=== PATIENT | female | born 1985 | race Caucasian/White ===

== ENCOUNTER 2018-08-15 09:58 | Inpatient (IN) | payer OTHER ==
[~2018-08-15] VITALS: Ht 162.6 cm; Wt 80.9 kg
[~2018-08-15 09:58] MED LIST: HYDR-3422 PO; PERMETHRIN 5%
[2018-08-15] MEDS ORDERED: VITAD1000 PO (10:11)
[2018-08-15] MEDS ORDERED: METO-558 PO (10:11)
[2018-08-15] MEDS ORDERED: LOSA1TAB37 PO (10:11)
[2018-08-15] MEDS ORDERED: KETOROLAC TROMETHAMINE 30 MG/ML VIAL IVP ONE (10:30)
[2018-08-15] MEDS ORDERED: SODIUM CHLORIDE 0.9% 1,000 ML IV ONE ×3 (10:30→13:45)
[2018-08-15 10:47] LABS: BASOPHILS % (AUTO) 0.3 % (0.0-2.0); EOSINOPHILS % (AUTO) 1.3 % (1.0-6.0); HEMATOCRIT 38.1 % (36-46); HEMOGLOBIN 12.9 g/dL (12.0-16.0); LYMPHOCYTES # (AUTO) 2.5 K/uL (1.0-4.8); LYMPHOCYTES % (AUTO) 23.7 % (22.0-44.0); MEAN CORPUSCULAR HEMOGLOBIN 27.7 pg (26.0-34.0); MEAN CORPUSCULAR HGB CONC 33.7 G/dL (31.0-37.0); MEAN CORPUSCULAR VOLUME 82 fL (80-100); MONOCYTES # (AUTO) 0.6 K/uL (0.1-1.0); MONOCYTES % (AUTO) 5.4 % (2.0-9.0); NEUTROPHILS # (AUTO) 7.2 K/uL (1.8-7.7); NEUTROPHILS % (AUTO) 69.3 % (40.0-70.0); PLATELET COUNT (AUTO) 282 K/uL (150-450); RED BLOOD CELL COUNT(AUTO) 4.65 MIL/uL (4.00-5.20); RED CELL DISTRIBUTION WIDTH 14.3 % (11.5-14.5)
[2018-08-15 11:05] LABS: APPEARANCE,URINE CLOUDY (CLEAR); BILIRUBIN,URINE NEGATIVE (NEGATIVE); GLUCOSE, URINE (UA) NEGATIVE (NEGATIVE); KETONES,URINE NEGATIVE (NEGATIVE); LEUKOCYTE ESTERASE ,URINE SMALL (NEGATIVE); NITRATE,URINE NEGATIVE (NEGATIVE); OCCULT BLOOD,URINE LARGE (NEGATIVE); PROTEIN,URINE TRACE (NEGATIVE)
[2018-08-15 11:23] LABS: ALANINE AMINOTRANSFERASE 31 U/L (12-78); ALBUMIN 3.4 g/dL (3.4-5.0); ALKALINE PHOSPHATASE 80 U/L (46-116); ANION GAP 9 mmol/L (8-16); ASPARTATE AMINOTRANSFERASE 22 U/L (15-37); BILIRUBIN,TOTAL 1.1 mg/dL (0.1-1.0); CALCIUM, TOTAL 8.6 mg/dL (8.8-10.5); CARBON DIOXIDE 29 mmol/L (22-29); CHLORIDE 102 mmol/L (98-107); CREATININE 0.79 mg/dL (0.60-1.30); GLOMERULAR FILTR. RATE CALC > 60 mL/min (>60); GLUCOSE,RANDOM 98 mg/dL (70-110); HCG,QUANTITATIVE < 1 mIU/mL (0-6); LIPASE 117 U/L (73-393); SODIUM SERUM 140 mmol/L (136-145); TOTAL PROTEIN, SERUM 7.3 g/dL (6.4-8.2); UREA NITROGEN, BLOOD 11 mg/dL (7-18)
[2018-08-15 11:27] LABS: POTASSIUM 2.9 mmol/L (3.5-5.1)
[2018-08-15] MEDS ORDERED: POTASSIUM CHLORIDE 20 MEQ ER TABLET PO ONE (11:30)
[2018-08-15 11:46] LABS: BACTERIA,URINE Few /HPF (None Seen); SQUAMOUS EPITHELIAL CELL,UR Moderate /LPF (None Seen)
[2018-08-15] MEDS ORDERED: KETAMINE HCL 50 MG/ML 10 ML VIAL IVP ONE (12:00)
[2018-08-15] MEDS ORDERED: ROCURONIUM BROMIDE 10 MG/ML 5 ML VIAL IVP ONE (12:00)
[2018-08-15] MEDS ORDERED: ONDANSETRON HCL 4 MG/2 ML VIAL IVP ONE (12:00)
[2018-08-15] MEDS ORDERED: ESMOLOL HCL 10 MG/ML 10 ML VIAL IVP ONE (12:00)
[2018-08-15] MEDS ORDERED: MIDAZOLAM HCL 2 MG/2 ML VIAL IVP ONE (12:00)
[2018-08-15] MEDS ORDERED: PROPOFOL 1% 20 ML VIAL IVP ONE (12:00)
[2018-08-15] MEDS ORDERED: SUCCINYLCHOLINE CHLORIDE 20 MG/ML 10 ML VIAL IVP ONE (12:00)
[2018-08-15] MEDS ORDERED: DEXAMETHASONE SOD PHOS 4 MG/ML VIAL IVP ONE (12:00)
[2018-08-15] MEDS ORDERED: KETOROLAC TROMETHAMINE 60 MG/2 ML VIAL IM ONE (12:00)
[2018-08-15] MEDS ORDERED: LIDOCAINE/PF 2% 5 ML VIAL INJ ONE (12:00)
[2018-08-15] MEDS ORDERED: ONDANSETRON HCL 4 MG/2 ML VIAL IVP PRN (13:00)
[2018-08-15] MEDS ORDERED: PIPERACILLIN/TAZO 3.375 GM/D5W 50 ML IV ONE (13:00)
[2018-08-15] MEDS ORDERED: MORPHINE SULFATE 4 MG/ML SYRINGE IVP PRN (13:00)
[2018-08-15] MEDS ORDERED: ACETAMINOPHEN 325 MG TABLET PO PRN (13:45)
[2018-08-15] MEDS ORDERED: MAGNESIUM HYDROXIDE SUSPENSION 30 ML UDCUP PO PRN (13:45)
[2018-08-15] MEDS ORDERED: POTASSIUM CHLORIDE 20 MEQ ER TABLET PO PRN (13:45)
[2018-08-15] MEDS ORDERED: MORPHINE SULFATE 2 MG/ML SYRINGE IVP PRN ×2 (13:45→17:15)
[2018-08-15] MEDS ORDERED: POTASSIUM CHL 10 MEQ/WATER 50 ML IV PRN (13:45)
[2018-08-15] MEDS ORDERED: ZOLPIDEM TARTRATE 5 MG TABLET PO PRN (13:45)
[2018-08-15] MEDS ORDERED: BISACODYL 10 MG RECTAL RECTAL SUPPOSITORY PR PRN (13:45)
[2018-08-15] MEDS ORDERED: HYDROCODONE/ACETAMINOPHEN 5-325 MG TABLET PO PRN ×2 (13:45→17:15)
[2018-08-15] MEDS ORDERED: LIDOCAINE 2%/EPI 1:200,000/PF 20 ML VIAL ONE (14:44)
[2018-08-15] MEDS ORDERED: BUPIVACAINE HCL/PF 0.5% 30 ML VIAL ONE (14:44)
[2018-08-15] MEDS ORDERED: SODIUM CHLORIDE 0.9% 0 ML IV ONE (14:44)
[2018-08-15] MEDS ORDERED: ACETAMINOPHEN 1000 MG/ISO-OSM 100 ML IV ONE (15:22)
[2018-08-15] MEDS ORDERED: SUGAMMADEX SODIUM 200 MG/2 ML VIAL IVP ONE (15:23)
[2018-08-15] MEDS ORDERED: HydrALAZINE HCL 20 MG/ML VIAL ONE (17:03)
[2018-08-15] MEDS ORDERED: HydrALAZINE HCL 20 MG/ML VIAL IVP ONE (17:15)
[2018-08-15] MEDS ORDERED: ACETAMINOPHEN 500 MG TABLET PO PRN (17:15)
[2018-08-15] MEDS ORDERED: MEPERIDINE-PF 25 MG/ML VIAL IVP PRN (17:15)
[2018-08-15] MEDS ORDERED: IBUPROFEN 600 MG TABLET PO PRN (17:15)
[2018-08-15] MEDS ORDERED: FentaNYL CITRATE-PF 100 MCG/2 ML VIAL IVP PRN (17:15)
[2018-08-15] MEDS ORDERED: IBUPROFEN 800 MG TABLET PO PRN (17:18)
[2018-08-15] MEDS ORDERED: ONDANSETRON HCL 4 MG/2 ML VIAL ONE (17:19)
[2018-08-15] MEDS: ONDANSETRON HCL 4 MG/2 ML VIAL IVP PRN (17:20)
[2018-08-15] MEDS ORDERED: MEPERIDINE-PF 25 MG/ML VIAL ONE (17:21)
[2018-08-15] MEDS ORDERED: HYDROmorphone 2 MG/ML SYRINGE ONE (17:24)
[2018-08-15] MEDS: HYDROmorphone 2 MG/ML SYRINGE IVP PRN ×2 (17:25→17:35)
[2018-08-15] MEDS ORDERED: RINGERS SOLUTION,LACTATED 500 ML IV STA (17:42)
[2018-08-15 19:49] VITALS: BP 147/101
[2018-08-15] MEDS: DOCUSATE SODIUM 100 MG CAPSULE PO SCH (20:15)
[2018-08-15] MEDS: RINGERS SOLUTION,LACTATED 1,000 ML IV SCH (20:16)
[2018-08-15] MEDS: PIPERACILLIN/TAZO 3.375 GM/D5W 50 ML IV SCH (20:16)
[2018-08-15] MEDS ORDERED: PNEUMOCOCCAL VACCINE POLYVALENT 0.5 ML VIAL [PPSV23] IM ONE (23:45)
[2018-08-15 23:50] VITALS: BP 139/99
[2018-08-16] MEDS: PIPERACILLIN/TAZO 3.375 GM/D5W 50 ML IV SCH ×3 (00:14→12:23)
[2018-08-16] MEDS: RINGERS SOLUTION,LACTATED 1,000 ML IV SCH (04:34)
[2018-08-16 05:50] VITALS: BP 147/98
[2018-08-16 06:30] LABS: ALANINE AMINOTRANSFERASE 32 U/L (12-78); ALBUMIN 3.4 g/dL (3.4-5.0); ALKALINE PHOSPHATASE 76 U/L (46-116); ANION GAP 10 mmol/L (8-16); ASPARTATE AMINOTRANSFERASE 19 U/L (15-37); BILIRUBIN,TOTAL 0.9 mg/dL (0.1-1.0); CALCIUM, TOTAL 9.1 mg/dL (8.8-10.5); CARBON DIOXIDE 24 mmol/L (22-29); CHLORIDE 102 mmol/L (98-107); CREATININE 0.82 mg/dL (0.60-1.30); GLOMERULAR FILTR. RATE CALC > 60 mL/min (>60); GLUCOSE,RANDOM 145 mg/dL (70-110); POTASSIUM 3.6 mmol/L (3.5-5.1); SODIUM SERUM 136 mmol/L (136-145); TOTAL PROTEIN, SERUM 7.5 g/dL (6.4-8.2); UREA NITROGEN, BLOOD 6 mg/dL (7-18)
[2018-08-16 07:29] VITALS: BP 142/86
[2018-08-16] MEDS: ONDANSETRON HCL 4 MG/2 ML VIAL IVP PRN (07:36)
[2018-08-16] MEDS: DOCUSATE SODIUM 100 MG CAPSULE PO SCH (07:37)
[2018-08-16] MEDS ORDERED: CHOLECALCIFEROL (VIT D3) 1,000 UNITS TABLET PO SCH (09:00)
[2018-08-16] MEDS ORDERED: MISC MED-CONVERTED FROM AMBULATORY (Losartan/Hydrochlorothiazide (Losartan-Hctz 50-12.5 Mg PO SCH (09:00)
[2018-08-16] MEDS ORDERED: LOSARTAN POTASSIUM 50 MG TABLET PO SCH (09:00)
[2018-08-16] MEDS ORDERED: HYDROCHLOROTHIAZIDE 25 MG TABLET PO SCH (09:00)
[2018-08-16] MEDS ORDERED: PANTOPRAZOLE SODIUM 40 MG DR TABLET PO SCH (09:00)
[2018-08-16] MEDS ORDERED: METOPROLOL SUCCINATE 50 MG ER TABLET PO SCH (09:00)
[2018-08-16 11:22] VITALS: BP 138/82
== END 2018-08-16 15:31 | disposition home or self-care (01) | DRG 343 ==
LOC: EMS 10:00 → 4E 15:18
PROVIDERS: ADMIT Internal Medicine; ATTEND Internal Medicine
PROC: 0DTJ4ZZ Resection of Appendix, Percutaneous Endoscopic Approach (ICD-10-PCS; principal; 2018-08-15 16:00)
DX: K35.80 Unspecified acute appendicitis (principal); I10 Essential (primary) hypertension; E87.6 Hypokalemia; Z91.018 Allergy to other foods; Z91.013 Allergy to seafood
CPT/HCPCS: 74176; 84132; 87081; 88304; G0378; J0131; J0330; J0360; J1100; J1170; J1885; J2175; J2250; J2405; J2543; J2704; J3490; J7030; J7120

== ENCOUNTER 2018-08-23 09:29 | Emergency (ER) | payer OTHER ==
[~2018-08-23] VITALS: Ht 154.9 cm; Wt 79.5 kg
[~2018-08-23 09:29] MED LIST changes: -HYDR-3422 PO; +LOSA1TAB37 PO; +METO-558 PO; -PERMETHRIN 5%; +VITAD1000 PO
[2018-08-23 11:33] VITALS: BP 165/102
== END 2018-08-23 11:40 | disposition home or self-care (01) ==
LOC: EMS 09:31
DX: G89.18 Other acute postprocedural pain (principal); R10.9 Unspecified abdominal pain; I10 Essential (primary) hypertension; F17.210 Nicotine dependence, cigarettes, uncomplicated; Z48.02 Encounter for removal of sutures; Z91.018 Allergy to other foods
CPT/HCPCS: 99406

== ENCOUNTER → 2023-05-20 | Outpatient (CLI) | payer OTHER ==
[~2023-05-20] MED LIST changes: +CHOL100018 PO; -VITAD1000 PO
[2023-05-21 04:06] LABS: MUMPS VIRUS IGG ANTIBODY <9.0 AU/mL (Immune >10.9); RUBELLA AB IGG-REFLAB <0.90 index (Immune >0.99); RUBEOLA (MEASLES) IGG <13.5 AU/mL (Immune >16.4); VARICELLA ZOSTER IGG AB TITER <135 index (Immune >165)
== END | disposition home or self-care (01) ==
LOC: LABMN 11:14
PROVIDERS: ATTEND Internal Medicine
DX: Z02.1 Encounter for pre-employment examination (principal)
CPT/HCPCS: 86706; 86735; 86762; 86765; 86787

== ENCOUNTER 2023-11-26 01:49 | Emergency (ER) | payer OTHER ==
[~2023-11-26] VITALS: Ht 154.9 cm; Wt 81.0 kg
[~2023-11-26 01:49] MED LIST changes: +METO-325 PO; -METO-558 PO
[2023-11-26 01:52] VITALS: TEMP 98.3
[2023-11-26] MEDS ORDERED: CloNIDine HCL 0.1 MG TABLET ONE (03:15)
[2023-11-26] MEDS: CloNIDine HCL 0.2 MG TABLET PO ONE (03:17)
[2023-11-26] MEDS: SODIUM CHLORIDE 0.9% 1,000 ML IV ONE (03:20)
[2023-11-26] MEDS: FAMOTIDINE 20 MG/2 ML VIAL IVP ONE (03:21)
[2023-11-26 03:24] LABS: BASOPHILS % (AUTO) 0.2 % (0.0-2.0); EOSINOPHILS % (AUTO) 0.3 % (1.0-6.0); HEMATOCRIT 43.2 % (36-46); HEMOGLOBIN 14.5 g/dL (12.0-16.0); LYMPHOCYTES # (AUTO) 1.9 K/uL (1.0-4.8); LYMPHOCYTES % (AUTO) 10.1 % (22.0-44.0); MEAN CORPUSCULAR HEMOGLOBIN 26.3 pg (26.0-34.0); MEAN CORPUSCULAR HGB CONC 33.6 G/dL (31.0-37.0); MEAN CORPUSCULAR VOLUME 78 fL (80-100); MONOCYTES # (AUTO) 0.6 K/uL (0.1-1.0); MONOCYTES % (AUTO) 3.5 % (2.0-9.0); NEUTROPHILS # (AUTO) 16.1 K/uL (1.8-7.7); PLATELET COUNT (AUTO) 294 K/uL (150-450); RED BLOOD CELL COUNT(AUTO) 5.52 MIL/uL (4.00-5.20); RED CELL DISTRIBUTION WIDTH 14.7 % (11.5-14.5); WHITE BLOOD COUNT (AUTO) 18.8 K/uL (4.5-11.0)
[2023-11-26 03:31] LABS: NEUTROPHILS % (AUTO) 85.9 % (40.0-70.0)
[2023-11-26 03:43] LABS: TROPONIN I-HIGH SENSITIVITY 15 ng/L (<51)
[2023-11-26 03:54] LABS: ALANINE AMINOTRANSFERASE 28 U/L (12-78); ALBUMIN 4.2 g/dL (3.4-5.0); ALKALINE PHOSPHATASE 99 U/L (46-116); ANION GAP 10 mmol/L (8-16); ASPARTATE AMINOTRANSFERASE 19 U/L (15-37); BILIRUBIN,TOTAL 0.9 mg/dL (0.1-1.0); CALCIUM, TOTAL 9.4 mg/dL (8.8-10.5); CARBON DIOXIDE 28 mmol/L (22-29); CHLORIDE 99 mmol/L (98-107); CREATININE 0.71 mg/dL (0.60-1.30); GLOMERULAR FILTR. RATE CALC > 60 mL/min (>60); GLUCOSE,RANDOM 142 mg/dL (70-110); HCG,QUANTITATIVE < 1 mIU/mL (0-6); LIPASE 36 U/L (16-77); SODIUM SERUM 137 mmol/L (136-145); TOTAL PROTEIN, SERUM 8.5 g/dL (6.4-8.2); UREA NITROGEN, BLOOD 9 mg/dL (7-18)
[2023-11-26 03:58] LABS: POTASSIUM 2.9 mmol/L (3.5-5.1)
[2023-11-26] MEDS: POTASSIUM CHLORIDE 20 MEQ ER TABLET PO ONE (04:25)
[2023-11-26] MEDS: HydrALAZINE HCL 20 MG/ML VIAL IVP ONE ×2 (04:35)
[2023-11-26 04:37] LABS: APPEARANCE,URINE TURBID (CLEAR); BILIRUBIN,URINE NEGATIVE (NEGATIVE); COLOR,URINE YELLOW (YELLOW); GLUCOSE, URINE (UA) NEGATIVE (NEGATIVE); KETONES,URINE 40-60 mg/dL (NEGATIVE); LEUKOCYTE ESTERASE ,URINE SMALL (NEGATIVE); NITRATE,URINE NEGATIVE (NEGATIVE); OCCULT BLOOD,URINE NEGATIVE (NEGATIVE); PH,URINE 6.5 (5.0-8.0); PROTEIN,URINE 30-70 mg/dL (NEGATIVE); SPECIFIC GRAVITIY, URINE 1.026 (1.003-1.030); UROBILINOGEN,URINE <=1.0 mg/dL (<=1.0)
[2023-11-26 05:01] LABS: BACTERIA,URINE Few /HPF (None Seen); RBC,URINE None Seen /HPF (0-2); SQUAMOUS EPITHELIAL CELL,UR Few /LPF (None Seen)
[2023-11-26 05:08] VITALS: BP 159/89; PULSE 71; RESP 16; O2SAT 98
[2023-11-26 06:44] LABS: LACTIC ACID 1.5 mmol/L (0.4-2.0)
[2023-11-26] MEDS: PIPERACILLIN/TAZO 3.375 GM/D5W 50 ML IV ONE (06:46)
[2023-11-26] MEDS: LOSARTAN POTASSIUM 50 MG TABLET PO ONE (06:46)
[2023-11-26 07:09] LABS: TROPONIN I-HIGH SENSITIVITY 13 ng/L (<51)
[2023-11-26] MEDS: OMEPRAZOLE 20 MG CAPSULE PO ONE (09:05)
[2023-11-26] MEDS ORDERED: OMEP20 PO (09:05)
[2023-11-26] MEDS: ONDANSETRON 4 MG TABLET PO ONE (09:05)
[2023-11-26] MEDS ORDERED: LISI-894 PO (09:10)
[2023-11-26] MEDS ORDERED: ACET-66 PO (09:10)
[2023-11-26] MEDS ORDERED: HYDR25TA2 PO (09:10)
[2023-11-29] MEDS ORDERED: AMOX-457 PO (13:28)
[2023-11-29] MEDS ORDERED: KETO10TA2 PO (13:28)
[2023-11-29] MEDS ORDERED: ACET-3385 PO (13:28)
[2023-11-29] MEDS ORDERED: DOCU-385 PO (15:03)
== END 2023-11-26 09:27 | disposition home or self-care (01) ==
LOC: EMS 01:49
DX: K80.20 Calculus of gallbladder without cholecystitis without obstruction (principal); E87.6 Hypokalemia; I10 Essential (primary) hypertension; R10.13 Epigastric pain; F17.210 Nicotine dependence, cigarettes, uncomplicated; Z90.49 Acquired absence of other specified parts of digestive tract; Z91.013 Allergy to seafood; Z91.018 Allergy to other foods
CPT/HCPCS: 99285; 74176; 96365; 76705; 96375; 71045; 96361; 80048; 80076; 81001; 83605; 83690; 83880; 84484; 84702; 84703; 85025; 87040; 93005; 84145; 36415; J3490; J0360; Q0162; J2543; J7030